=== PATIENT | female | born 1950 | race Caucasian/White ===

== ENCOUNTER → 2017-05-20 | Outpatient (CLI) | payer MEDICARE, BC, OTHER | END | disposition home or self-care (01) | LOC: GMAH 10:32 | PROVIDERS: ATTEND Family Medicine | DX: I10 Essential (primary) hypertension (principal) ==

== ENCOUNTER → 2017-07-23 | Outpatient (CLI) | payer MEDICARE, BC, OTHER | END | disposition home or self-care (01) | LOC: NC 13:03 | PROVIDERS: ATTEND Family Medicine | DX: E03.9 Hypothyroidism, unspecified (principal) ==

== ENCOUNTER 2017-11-22 01:55 | Emergency (ER) | payer MEDICARE, BC, OTHER ==
[2017-11-22] MEDS ORDERED: METOPROLOL TARTRATE INJ 5 MG/5 ML VIAL IV ONE ×2 (02:05→02:06)
--- NOTE | 2017-11-22 02:39 | RAD ---
EXAM: Single view chest. INDICATION: Rhonchi. COMPARISON: Chest x-ray: 07/26/2010. FINDINGS: Cardiac silhouette: Unremarkable. Stephenie: Unremarkable. Lobar consolidation: None. Pleural effusion: None. Pneumothorax: None. Other: None. Bones: Unremarkable. Other: None. IMPRESSION: 1. No acute cardiopulmonary process. Electronically signed by: Dov Berumen MD 11/22/2017 2:38 AM ASSISTANT FACILITY MANAGER Workstation: [id number]
[2017-11-22] MEDS ORDERED: MONTELUKAST 10 MG TAB PO ONE (02:41)
[2017-11-22] MEDS ORDERED: METOPROLOL TARTRATE 25 MG TAB PO ONE (02:46)
[2017-11-22] MEDS ORDERED: predniSONE 20 MG TAB PO ONE (02:46)
[2017-11-22] MEDS ORDERED: POTASSIUM CHLORIDE ELIXIR 20 MEQ/15 ML UD PO ONE (02:48)
--- NOTE | 2017-11-22 06:39 | ED.PDOC ---
History of Present Illness - General Chief Complaint: Cardiac Respiratory Arrest Stated Complaint: "flutter" Time Seen by Provider: 11/22/17 01:58 Source: patient Exam Limitations: no limitations - History of Present Illness Initial Comments: the patient is a 67-year-old female brought in by EMS secondary to feeling of palpitations. The patient has had on-and-off episodes like this for several years but they have been unable to find the source. On arrival with EMS the patient had a heart rate around 200 and was in SVT. She was going in and out of SVT on her own. She received 20 mg of Cardizem IV which did slow the SVT down to the 160s but did not prevent recurrences. She was having a small amount of chest discomfort with the SVT. The patient is also recently had some increased runny nose and generalized achiness. She has had a increase in her chronic bronchitis flare recently. She had taken a albuterol nebulizer treatment prior to this worsening. She does have scattered wheezes bilaterally. She is anxious. Timing/Duration: unsure Severity: moderate Improving Factors: nothing Worsening Factors: nothing Associated Symptoms: cough, fever/chills, malaise, shortness of breath Allergies/Adverse Reactions: Allergies Codeine Allergy (Verified 11/22/17 02:22) Penicillins Allergy (Verified 11/22/17 02:22) Home Medications: Ambulatory Orders Ondansetron [Zofran Odt] 4 mg PO Q4H PRN #10 tab 01/28/16 Review of Systems - Review of Systems Constitutional: States: fever, malaise EENTM: States: nose congestion, throat pain Respiratory: States: cough Cardiology: States: no symptoms reported Gastrointestinal/Abdominal: States: no symptoms reported Genitourinary: States: no symptoms reported Musculoskeletal: States: other - eneralized myalgias Skin: States: no symptoms reported Neurological: States: anxiety Endocrine: States: no symptoms reported All other Systems: No Change from Baseline Past Medical History (General) - Patient Medical History Hx Congestive Heart Failure: No Hx Hypertension: Yes Hx Thyroid Disease: Yes Hx Diabetes: No Surgical History: appendectomy - Vaccination History Hx Tetanus, Diphtheria Vaccination: No Hx Influenza Vaccination: No Hx Pneumococcal Vaccination: No - Social History Hx Tobacco Use: No Hx Alcohol Use: No Hx Substance Use: No Hx Substance Use Treatment: No Hx Depression: No - Female History Patient : No Family Medical History - Family History Mother Family History: Unknown Living Status: Physical Exam - Physical Exam General Appearance: Alert, Anxious, No apparent distress Eye Exam: bilateral normal Ears, Nose, Throat: hearing grossly normal, nasal congestion, pharyngeal erythema Neck: full range of motion, supple Respiratory: no respiratory distress, no accessory muscle use, wheezing - bilaterally Cardiovascular/Chest: normal peripheral pulses, no edema, other - heart rate goes from a SVT to a normal sinus rhythm and back. 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, alert, normal mood/affect, oriented x 3 Skin Exam: normal color Comments: Vital Signs - 24 hr 11/22/17 11/22/17 11/22/17 02:00 02:11 02:17 Temperature 98 F Pulse Rate 85 176 H Pulse Rate [ 85 71 right] Respiratory 18 20 Rate Blood Pressure 141/74 [left] O2 Sat by Pulse 93 L 92 L Oximetry 11/22/17 11/22/17 11/22/17 02:30 03:00 03:30 Temperature 96.2 F L 96.0 F L Pulse Rate Pulse Rate [ 67 68 68 right] Respiratory 20 20 20 Rate Blood Pressure 130/65 120/71 116/65 [left] O2 Sat by Pulse 96 95 98 Oximetry 11/22/17 11/22/17 11/22/17 04:15 04:49 06:00 Temperature 97.6 F Pulse Rate 70 67 Pulse Rate [ 70 66 67 right] Respiratory 18 20 20 Rate Blood Pressure 138/70 126/56 116/65 [left] O2 Sat by Pulse 93 L 96 95 Oximetry 11/22/17 06:39 Temperature 95.7 F L Pulse Rate 63 Pulse Rate [ 63 right] Respiratory 18 Rate Blood Pressure 104/61 [left] O2 Sat by Pulse 97 Oximetry Progress - Progress Progress: 11/22/17 06:43 the patient's a 67-year-old female presenting with paroxysmal SVT. This is likely being made worse by a flare of her chronic bronchitis likely triggered by the flu which she has tested positive for here today. Additionally the albuterol used to help treat her bronchitis is likely worsening the issue as well. The patient responded well to a dose of IV Lopressor here and has received a dose of oral metoprolol. she will be written for oral metoprolol twice daily for the next month to help prevent recurrences. vagal maneuvers do seem to work at least temporarily to cardiovert the patient. Also for the chronic bronchitis, the patient is going to be written for low-dose prednisone for 4 days as well as Singulair 10 mg daily for one month. She will be written for Tamiflu for the flu. She will be written for Xopenex nebs to use in place of the albuterol nebs. Hopefully this will reduce her recurrences of SVT. The patient should follow-up with her primary care doctor early next week for reevaluation primarily of her pulmonary processes. She should also be set up with a steel box toe inserter in the near future for a stress test as she did have some mild chest discomfort with the tachycardia. ER warnings were given for any significant worsening. Lab work is otherwise reassuring. the patient has been monitored for more than 4 hours.he patient did also have some mild hypokalemia replaced on 10 mEq of potassium chloride daily. She'll need to have this followed obviously. 11/22/17 06:49 - Results/Orders Results/Orders: Laboratory Tests 11/22/17 11/22/17 11/22/17 02:30 02:30 02:30 WBC 4.0 L RBC 4.54 Hgb 12.9 Hct 38.8 MCV 85.5 MCH 28.4 MCHC 33.2 RDW 15.2 H Plt Count 144 MPV 8.7 Absolute Neuts (auto) 2.40 Absolute Lymphs (auto) 0.60 L Absolute Monos (auto) 1.00 H Absolute Eos (auto) 0.00 Absolute Basos (auto) 0.00 Neutrophils % 59.4 Lymphocytes % 15.2 L Monocytes % 24.3 H Eosinophils % 0.1 L Basophils % 1.0 PT 15.3 H INR 1.360 PTT (SP) 34.1 D-Dimer, Quantitative < 230 Sodium 137 Potassium 3.1 L Chloride 108 Carbon Dioxide 20 L Anion Gap 12.1 BUN 11 Creatinine 0.72 BUN/Creatinine Ratio 15.3 Random Glucose 123 H Serum Osmolality 274.6 L Calcium 7.9 L Magnesium 1.8 Total Bilirubin 0.6 AST 20 ALT 23 Alkaline Phosphatase 69 Creatine Kinase 69 CK-MB (CK-2) 0.9 CK-MB (CK-2) % Not Reportable Troponin I < 0.02 B-Natriuretic Peptide 40.0 Serum Total Protein 6.1 L Albumin 3.2 Globulin 2.9 Albumin/Globulin Ratio 1.1 TSH 0.47 Urine Color Urine Appearance Urine pH Ur Specific [place] Urine Protein Urine Glucose (UA) Urine Ketones Urine Blood Urine Nitrite Urine Bilirubin Urine Urobilinogen Ur Leukocyte Esterase Urine RBC Urine WBC Ur Epithelial Cells Amorphous Sediment Urine Bacteria Urine Mucus 11/22/17 04:10 WBC RBC Hgb Hct MCV MCH MCHC RDW Plt Count MPV Absolute Neuts (auto) Absolute Lymphs (auto) Absolute Monos (auto) Absolute Eos (auto) Absolute Basos (auto) Neutrophils % Lymphocytes % Monocytes % Eosinophils % Basophils % PT INR PTT (SP) D-Dimer, Quantitative Sodium Potassium Chloride Carbon Dioxide Anion Gap BUN Creatinine BUN/Creatinine Ratio Random Glucose Serum Osmolality Calcium Magnesium Total Bilirubin AST ALT Alkaline Phosphatase Creatine Kinase CK-MB (CK-2) CK-MB (CK-2) % Troponin I B-Natriuretic Peptide Serum Total Protein Albumin Globulin Albumin/Globulin Ratio TSH Urine Color Yellow Urine Appearance Clear Urine pH 5.5 Ur Specific [place] >= 1.030 Urine Protein Negative Urine Glucose (UA) Negative Urine Ketones 15 H Urine Blood Moderate H Urine Nitrite Negative Urine Bilirubin Negative Urine Urobilinogen 0.2 Ur Leukocyte Esterase Negative Urine RBC 3-5 H Urine WBC 0-1 Ur Epithelial Cells 1-3 Amorphous Sediment Trace Urine Bacteria Rare Urine Mucus Trace test for influenza was positive. chest x-ray shows no acute pathology. EKG shows SVT at a rate of 170 bpm. EKG when the patient is in sinus rhythm shows no acute ST segment changes concerning for ischemia. Normal QT interval. Normal axis. Departure - Departure Clinical Impression: Paroxysmal SVT (supraventricular tachycardia), Influenza A, Hypokalemia, Acute exacerbation of chronic bronchitis Disposition: Discharge to Home or Self Care Condition: Fair Departure Forms: ED Discharge - Pt. Copy, Patient Portal Self Enrollment Instructions: Paroxysmal Supraventricular Tachycardia, Influenza, Hypokalemia, DI for Chronic Bronchitis Diet: regular diet Activity: increase activity as tolerated Referrals: Silverio Rosales MD [Primary Care Provider] - 1-5 Days Home Medications: Ambulatory Orders Ondansetron [Zofran Odt] 4 mg PO Q4H PRN #10 tab 01/28/16 Additional Instructions: the patient's a 67-year-old female presenting with paroxysmal SVT. This is likely being made worse by a flare of her chronic bronchitis likely triggered by the flu which she has tested positive for here today. Additionally the albuterol used to help treat her bronchitis is likely worsening the issue as well. The patient responded well to a dose of IV Lopressor here and has received a dose of oral metoprolol. she will be written for oral metoprolol twice daily for the next month to help prevent recurrences. vagal maneuvers do seem to work at least temporarily to cardiovert the patient. Also for the chronic bronchitis, the patient is going to be written for low-dose prednisone for 4 days as well as Singulair 10 mg daily for one month. She will be written for Tamiflu for the flu. She will be written for Xopenex nebs to use in place of the albuterol nebs. Hopefully this will reduce her recurrences of SVT. The patient should follow-up with her primary care doctor early next week for reevaluation primarily of her pulmonary processes. She should also be set up with a steel box toe inserter in the near future for a stress test as she did have some mild chest discomfort with the tachycardia. ER warnings were given for any significant worsening. Lab work is otherwise reassuring. the patient has been monitored for more than 4 hours. additionally the patient did have some mild hypokalemia and we placed on 10 mEq of potassium chloride daily.
[2017-11-22 06:40] VITALS: TEMP 95.7; O2SAT 97
[2017-11-22 07:07] VITALS: BP 119/72
== END 2017-11-22 07:06 | disposition home or self-care (01) ==
LOC: ER 01:55
DX: I47.1 Supraventricular tachycardia (principal); J09.X2 Influenza due to identified novel influenza A virus with other respiratory manifestations; J20.9 Acute bronchitis, unspecified; E87.6 Hypokalemia; J42 Unspecified chronic bronchitis; I10 Essential (primary) hypertension; E07.9 Disorder of thyroid, unspecified; Z88.5 Allergy status to narcotic agent; Z88.0 Allergy status to penicillin; Z79.899 Other long term (current) drug therapy
CPT/HCPCS: 36415; 71010; 80053; 81001; 82550; 82553; 83735; 83880; 84443; 84484; 85025; 85379; 85610; 85730; 87040; 87502; 93005; J7512

== ENCOUNTER 2017-11-23 10:33 | Emergency (ER) | payer MEDICARE, OTHER ==
[2017-11-23] MEDS ORDERED: SODIUM CHLORIDE 0.9% (FLUSH) 10 ML SYG IV PRN (10:47)
[2017-11-23] MEDS ORDERED: NITROGLYCERIN 0.4 MG 25 EA TAB SL ONE (10:47)
[2017-11-23] MEDS ORDERED: ASPIRIN TABLET 325 MG TAB PO ONE (10:47)
--- NOTE | 2017-11-23 10:47 | ED.PDOC ---
History of Present Illness - General Chief Complaint: General Stated Complaint: dizzy spells and heart flutter Time Seen by Provider: 11/23/17 10:46 Source: patient - History of Present Illness Initial Comments: Gayatri Miller 67 y/o female stated that she had been having dizzy spells which started this morning feeling light headed as well as felt heart rate was raising.She was diagnosed with flu and also was treated for PSVT yesterday and according to her she had PSVT 2 years ago was placed on monitor but no recurrence since then.At home she monitored her heart rate with pulse oximeter noted rate went up to 200's but while she was on heart monitor here no elevated heart rate noted but was NSR at 80-70's.Denies chest pain symptoms,no hearing loss,no tinnitus but stated has history of vertigo. Timing/Duration: 7-24 hours Severity: moderate Location: other - no chest pain symptoms Activities at Onset: none Prior Chest Pain/Cardiac Workup: other - holter monitor Improving Factors: rest Nitro Today/Relief: no nitro taken today Aspirin Treatment Today: no aspirin today Associated Symptoms: other - see hpi Allergies/Adverse Reactions: Allergies Codeine Allergy (Verified 11/22/17 02:22) Penicillins Allergy (Verified 11/22/17 02:22) Home Medications: Ambulatory Orders Ondansetron [Zofran Odt] 4 mg PO Q4H PRN #10 tab 01/28/16 Review of Systems - Review of Systems Constitutional: States: no symptoms reported Respiratory: States: cough Cardiology: States: see HPI, palpitations Gastrointestinal/Abdominal: States: no symptoms reported Genitourinary: States: no symptoms reported Musculoskeletal: States: no symptoms reported Skin: States: no symptoms reported Neurological: States: other - dizziness Past Medical History (General) - Patient Medical History Hx Congestive Heart Failure: No Hx Hypertension: Yes Hx Thyroid Disease: Yes Hx Diabetes: No Surgical History: appendectomy, cholecystectomy, other - c section - Vaccination History Hx Tetanus, Diphtheria Vaccination: No Hx Influenza Vaccination: No Hx Pneumococcal Vaccination: No - Social History Hx Tobacco Use: No Hx Alcohol Use: No Hx Substance Use: No Hx Substance Use Treatment: No Hx Depression: No Hx Physical Abuse: No Hx Emotional Abuse: No Hx Suspected Abuse: No - Activities of Daily Living Patient Lives Alone: No - Grooming Ability: Independent Toileting Ability: Independent - Female History Patient is a Female of Child Bearing Age (10 -59 yrs old): No Patient : No Family Medical History - Family History Mother Family History: Unknown Living Status: Hx Family Stroke: Yes - dad Hx Cardiac Disease: Yes - a.fib- sister Hx Family;Other: LUPUS-sister;Parkinsons disease-sister;Pulmonary fibrosis -mom Physical Exam - Physical Exam General Appearance: Alert, Comfortable, No apparent distress Eyes, Ears, Nose, Throat Exam: PERRL/EOMI, normal ENT inspection, pharynx normal Neck: non-tender, full range of motion, supple, normal inspection, other - no carotid bruits Respiratory: chest non-tender, no respiratory distress, no accessory muscle use , other - coarse breath sounds Cardiovascular/Chest: normal peripheral pulses, regular rate, rhythm, no gallop , no murmur Peripheral Pulses: radial,right: 2+, radial,left: 2+ Gastrointestinal/Abdominal: normal bowel sounds, non tender, soft Extremity: no pedal edema, no calf tenderness 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, no motor/sensory deficits, alert, oriented x 3, other - pronator drift negative Skin Exam: normal color, warm/dry Progress - Progress Progress: 11/23/17 11:51 Last Vital Signs Temp 100.2 F H 11/23/17 10:52 Pulse 78 11/23/17 10:52 Resp 18 11/23/17 10:52 BP 147/86 11/23/17 10:52 Pulse Ox 97 11/23/17 10:52 - Results/Orders Results/Orders: Laboratory Tests 11/23/17 11/23/17 11/23/17 11:17 11:17 11:17 WBC 4.9 RBC 5.17 Hgb 14.6 Hct 43.4 MCV 84.0 MCH 28.3 MCHC 33.6 RDW 15.0 H Plt Count 160 MPV 9.0 Absolute Neuts (auto) 2.40 Absolute Lymphs (auto) 1.50 Absolute Monos (auto) 0.90 H Absolute Eos (auto) 0.00 Absolute Basos (auto) 0.10 Neutrophils % 48.9 Lymphocytes % 30.4 Monocytes % 19.2 H Eosinophils % 0.3 L Basophils % 1.2 PT 13.4 H INR 1.190 PTT (SP) 35.7 D-Dimer, Quantitative < 200 Sodium 135 Potassium 3.9 Chloride 107 Carbon Dioxide 20 L Anion Gap 11.9 L BUN 11 Creatinine 0.68 BUN/Creatinine Ratio 16.2 Random Glucose 110 H Serum Osmolality 270.1 L Lactic Acid Calcium 8.5 Magnesium 1.9 Total Bilirubin 0.4 Direct Bilirubin 0.1 Indirect Bilirubin 0.3 AST 27 ALT 29 Alkaline Phosphatase 47 D Creatine Kinase 100 CK-MB (CK-2) 1.5 CK-MB (CK-2) % Not Reportable Troponin I < 0.02 C-Reactive Protein B-Natriuretic Peptide 44.4 Serum Total Protein 6.1 L Albumin 3.1 L 11/23/17 11/23/17 11:17 11:17 WBC RBC Hgb Hct MCV MCH MCHC RDW Plt Count MPV Absolute Neuts (auto) Absolute Lymphs (auto) Absolute Monos (auto) Absolute Eos (auto) Absolute Basos (auto) Neutrophils % Lymphocytes % Monocytes % Eosinophils % Basophils % PT INR PTT (SP) D-Dimer, Quantitative Sodium Potassium Chloride Carbon Dioxide Anion Gap BUN Creatinine BUN/Creatinine Ratio Random Glucose Serum Osmolality Lactic Acid 0.9 Calcium Magnesium Total Bilirubin Direct Bilirubin Indirect Bilirubin AST ALT Alkaline Phosphatase Creatine Kinase CK-MB (CK-2) CK-MB (CK-2) % Troponin I C-Reactive Protein 1.2 H B-Natriuretic Peptide Serum Total Protein Albumin No fast heart rate noted on monitor HR-70-80;Discuss lab work to patient no changes from his previous labs yesterday;Advised to follow up with primary md - EKG/XRAY/CT EKG: Sinus, no ST T wave changes Comments: heart rate 93;LAE XRAY: chest - no acute abnormalities Departure - Departure Clinical Impression: Dizziness, nonspecific, Heart palpitations, History of PSVT (paroxysmal supraventricular tachycardia) Time of Disposition: 12:35 Disposition: Discharge to Home or Self Care Condition: Good Departure Forms: ED Discharge - Pt. Copy, Patient Portal Self Enrollment Instructions: DI for Palpitations, DI for Arrhythmias, DI for Dizziness- Nonvertigo, Dizziness, Nonvertigo, Combating Dizziness in Older Adults Referrals: Silverio Rosales MD [Primary Care Provider] - 1-2 Weeks Home Medications: Ambulatory Orders Ondansetron [Zofran Odt] 4 mg PO Q4H PRN #10 tab 01/28/16 Additional Instructions: Continue with all home medications ;Return to emergency room as needed;FOLLOW UP WITH PRIMARY MD-Dr. Rosales in AM 11/24/2017-call for your appointment
[2017-11-23] MEDS ORDERED: SODIUM CHLORIDE 0.9% 500ML 500 ML IVS ONE (10:50)
--- NOTE | 2017-11-23 11:08 | RAD ---
EXAM DESCRIPTION: Chest,1 View CLINICAL HISTORY: 67 years Female, pain COMPARISON: November 22, 2017 TECHNIQUE: AP portable view FINDINGS: Cardiac silhouette and mediastinum are unchanged. No infiltrates have developed. No pleural effusions. Intact bony thorax. IMPRESSION: No significant changes. No infiltrates Electronically signed by: Sohan Aguilera 11/23/2017 11:[address] [facility]
[2017-11-23 12:50] VITALS: TEMP 99.2
[2017-11-23 13:55] VITALS: BP 167/78; O2SAT 93
== END 2017-11-23 13:48 | disposition home or self-care (01) ==
LOC: ER 10:33
DX: R42 Dizziness and giddiness (principal); R00.2 Palpitations; E07.9 Disorder of thyroid, unspecified; I10 Essential (primary) hypertension; Z88.5 Allergy status to narcotic agent; Z88.0 Allergy status to penicillin
CPT/HCPCS: 36415; 71010; 80048; 80076; 82550; 82553; 83605; 83880; 84484; 85025; 85379; 85610; 85730; 86140; 93005; 94760; J7040

== ENCOUNTER → 2018-01-04 | Outpatient (CLI) | payer MEDICARE, OTHER | LOC: GMAH 19:43 | PROVIDERS: ATTEND Family Medicine | DX: E03.9 Hypothyroidism, unspecified (principal) ==

== ENCOUNTER → 2019-01-06 | Outpatient (CLI) | payer MEDICARE, OTHER | LOC: GMAH 10:49 | PROVIDERS: ATTEND Family Medicine | DX: I10 Essential (primary) hypertension (principal) ==

== ENCOUNTER → 2020-05-10 | Outpatient (CLI) | payer MEDICARE, OTHER | LOC: GMA MATASK 14:21 | PROVIDERS: ATTEND Family Medicine | DX: E03.9 Hypothyroidism, unspecified (principal) ==

== ENCOUNTER → 2020-05-21 | Outpatient (CLI) | payer MEDICARE, OTHER ==
--- NOTE | 2020-05-21 10:49 | RAD ---
EXAM DESCRIPTION: Pelvis CLINICAL HISTORY: 69 years Female, HIP PAIN LEFT COMPARISON: None. TECHNIQUE: AP radiograph of the pelvis was performed. FINDINGS: The pelvic ring appears grossly intact on this single AP radiograph. No acute fracture or dislocation. Bilateral sacroiliac joints appear normal. Mild bilateral hip osteoarthritis. Moderate to severe osteitis pubis. The visualized lumbo-sacral spine demonstrates mild degenerative changes. IMPRESSION: Single AP radiograph of the pelvis demonstrates grossly intact pelvic ring. Mild bilateral hip osteoarthritis. Moderate to severe osteitis pubis. Electronically signed by: Courtney Ibanez MD 05/21/2020 10:47 AM CDT
--- NOTE | 2020-05-21 10:49 | RAD ---
EXAM DESCRIPTION: Knee,Left Complete CLINICAL HISTORY: 69 years Female, PAIN IN LEFT KNEE TECHNIQUE: 4 views of the left knee were performed. COMPARISON: None available. FINDINGS: The visualized bones appear well mineralized. No acute fracture or dislocation. Mild to moderate tricompartmental osteoarthritis. Tiny joint effusion. The soft tissues appear grossly unremarkable. IMPRESSION: Mild to moderate tricompartmental osteoarthritis. Tiny joint effusion. Electronically signed by: Courtney Ibanez MD 05/21/2020 10:48 AM CDT
== END ==
LOC: RAD 09:01
PROVIDERS: ATTEND Orthopaedic Surgery
DX: M16.0 Bilateral primary osteoarthritis of hip (principal); M86.9 Osteomyelitis, unspecified; M17.12 Unilateral primary osteoarthritis, left knee; M25.462 Effusion, left knee

== ENCOUNTER → 2020-08-21 | Outpatient (CLI) | payer MEDICARE, OTHER | LOC: GMA MATASK 14:39 | PROVIDERS: ATTEND Family Medicine | DX: E03.9 Hypothyroidism, unspecified (principal); I10 Essential (primary) hypertension ==

== ENCOUNTER → 2020-10-22 | Outpatient (CLI) | payer MEDICARE, OTHER | LOC: GMA MATASK 14:27 | PROVIDERS: ATTEND Family Medicine | DX: E03.9 Hypothyroidism, unspecified (principal) ==